=== PATIENT | male | born 1985 | race Caucasian/White ===

== ENCOUNTER 2017-10-27 17:52 | Emergency (ER) | payer MEDICAID ==
[~2017-10-27] VITALS: Ht 170.2 cm; Wt 89.5 kg
[~2017-10-27 17:52] MED LIST: PALI9TAB PO; PARO20TA6 PO
[2017-10-27] MEDS ORDERED: LORazepam 1 MG tablet PO ONE (18:50)
[2017-10-27 19:13] LABS: URINE AMPHETAMINE SCREEN POSITIVE (Neg); URINE BARBITUATE SCREEN NEGATIVE (Neg); URINE BENZODIAZEPINES SCREEN NEGATIVE (Neg); URINE CANNABINOID SCREEN POSITIVE (Neg); URINE COCAINE SCREEN NEGATIVE (Neg); URINE METHADONE SCREEN NEGATIVE (Neg); URINE OPIATE SCREEN NEGATIVE (Neg); URINE PHENCYCLIDINE SCREEN NEGATIVE (Neg)
[2017-10-27 19:17] LABS: BASOPHILS % (AUTO) 0.3 % (0-1); EOSINOPHILS # (AUTO) 0.1 X10'3 (0-0.9); EOSINOPHILS % (AUTO) 1.4 % (0-6); HEMATOCRIT 42.2 % (42.0-52.0); HEMOGLOBIN 14.9 g/dl (14.0-17.9); LYMPHOCYTES % (AUTO) 21.4 % (21-51); MEAN CORPUSCULAR HEMOGLOBIN 32.4 PG (27.0-31.0); MEAN CORPUSCULAR HGB CONC 35.2 % (33.0-36.5); MEAN CORPUSCULAR VOLUME 92.2 FL (78-98); MEAN PLATELET VOLUME 8.7 FL (7.4-10.4); MONOCYTES # (AUTO) 0.6 X10'3 (0-0.9); MONOCYTES % (AUTO) 6.8 % (2-12); NEUTROPHILS # (AUTO) 6.6 X10'3 (1.8-7.7); NEUTROPHILS % (AUTO) 70.1 % (42-75); PLATELET COUNT 216 X10'3 (140-440); RED BLOOD COUNT 4.58 X10'6 (4.70-6.10); RED CELL DISTRIBUTION WIDTH 13.3 % (11.5-14.5); WHITE BLOOD COUNT 9.5 X10'3 (4.5-11.0)
[2017-10-27 19:23] LABS: ALANINE AMINOTRANSFERASE 78 U/L (12-78); ALBUMIN 4.7 G/DL (3.4-5.0); ALBUMIN/GLOBULIN RATIO 1.5 (1.1-1.5); ALKALINE PHOSPHATASE 101 IU/L (46-116); ANION GAP 12 (8-16); ASPARTATE AMINO TRANSFERASE 16 U/L (10-37); BILIRUBIN,TOTAL 0.7 MG/DL (0.1-1.0); BLOOD UREA NITROGEN 12 MG/DL (7-18); BUN/CREATININE RATIO 10.7 (5.4-32.0); CALCIUM 9.2 MG/DL (8.5-10.1); CHLORIDE 101 MMOL/L (99-107); CREATININE 1.12 MG/DL (0.60-1.10); GLUCOSE 92 MG/DL (70-104); POTASSIUM 3.8 MMOL/L (3.5-5.1); SODIUM 138 MMOL/L (135-145); TOTAL CARBON DIOXIDE 25.1 MMOL/L (24-32); TOTAL PROTEIN 7.9 G/DL (6.4-8.2); eGFR 76 ML/MIN
[2017-10-27 19:25] LABS: ETHANOL < 0.010 GM/DL (0.0-0.010)
[2017-10-28] MEDS ORDERED: OLANZapine **IM** 10 mg inj. IM ONE ×2 (00:35→01:23)
[2017-10-28 05:52] VITALS: BP 137/99
[2017-10-28] MEDS ORDERED: olanzapine 10mg tablet PO PRN (06:50)
[2017-10-28] MEDS ORDERED: PARoxetine 20mg tablet PO SCH (08:00)
[2017-10-28] MEDS ORDERED: PALIPERIDONE 3 MG TAB.ER.24 PO SCH (08:00)
== END 2017-10-28 12:01 | disposition home or self-care (01) ==
LOC: ER 17:53
DX: F20.9 Schizophrenia, unspecified (principal); F79 Unspecified intellectual disabilities; F32.9 Major depressive disorder, single episode, unspecified; F41.9 Anxiety disorder, unspecified; J45.909 Unspecified asthma, uncomplicated; F15.10 Other stimulant abuse, uncomplicated; F12.10 Cannabis abuse, uncomplicated; Z56.0 Unemployment, unspecified; Z59.0 Homelessness; Z79.899 Other long term (current) drug therapy
CPT/HCPCS: 36415; 80053; 80305; 80320; 85025; 96372; 99284

== ENCOUNTER 2018-04-09 15:32 | Emergency (ER) | payer MEDICAID ==
[~2018-04-09] VITALS: Ht 170.2 cm; Wt 88.4 kg
[2018-04-09 15:45] VITALS: BP 152/102
[2018-04-09] MEDS ORDERED: haloperidol lactate 5mg/ml inj IM ONE (16:35)
[2018-04-09] MEDS ORDERED: LORazepam 1 MG tablet PO ONE (16:35)
[2018-04-09] MEDS ORDERED: PALI6TAB PO (16:40)
== END 2018-04-09 16:59 | disposition home or self-care (01) ==
LOC: ER 15:33
DX: F41.9 Anxiety disorder, unspecified (principal); F12.90 Cannabis use, unspecified, uncomplicated; F15.90 Other stimulant use, unspecified, uncomplicated; F32.9 Major depressive disorder, single episode, unspecified; F20.9 Schizophrenia, unspecified; J45.909 Unspecified asthma, uncomplicated; Z79.899 Other long term (current) drug therapy; Z59.0 Homelessness; Z56.0 Unemployment, unspecified
CPT/HCPCS: 96372; 99283; J1630

== ENCOUNTER 2018-07-10 23:59 | Emergency (ER) | payer MEDICAID ==
[~2018-07-10] VITALS: Ht 170.2 cm; Wt 87.2 kg
[~2018-07-10 23:59] MED LIST changes: +BENZ1TAB7 PO; +LORA1TAB PO; +METH10TA4 PO; +PALI6TAB PO; -PALI9TAB PO; -PARO20TA6 PO; +PARO40TA4 PO; +PRAZ2CAP2 PO
[2018-07-11 00:11] VITALS: BP 143/96
[2018-07-11 01:13] LABS: URINE AMPHETAMINE SCREEN NEGATIVE (Neg); URINE BARBITUATE SCREEN NEGATIVE (Neg); URINE BENZODIAZEPINES SCREEN NEGATIVE (Neg); URINE CANNABINOID SCREEN POSITIVE (Neg); URINE COCAINE SCREEN NEGATIVE (Neg); URINE METHADONE SCREEN NEGATIVE (Neg); URINE OPIATE SCREEN POSITIVE (Neg); URINE PHENCYCLIDINE SCREEN NEGATIVE (Neg)
[2018-07-11 01:16] LABS: CLARITY,URINE CLEAR (Clear); COLOR,URINE YELLOW (Yellow); GLUCOSE, URINE NEGATIVE (Neg); KETONES,URINE NEGATIVE (Neg); LEUKOCYTE ESTERASE ,URINE NEGATIVE (Neg); NITRITES, URINE NEGATIVE (Neg); OCCULT BLOOD,URINE NEGATIVE (Neg); PROTEIN,URINE NEGATIVE (Neg); UROBILINOGEN,URINE 0.2 E.U/dL (0.2-1.0)
[2018-07-11 01:19] LABS: EOSINOPHILS # (AUTO) 0.3 X10'3 (0-0.9); MEAN PLATELET VOLUME 8.9 FL (7.4-10.4)
[2018-07-11 01:20] LABS: UA COLLECTION TYPE CLN CATCH MIDSTREAM
[2018-07-11 01:20] LABS: ALANINE AMINOTRANSFERASE 35 U/L (12-78); ALBUMIN 4.4 G/DL (3.4-5.0); ALBUMIN/GLOBULIN RATIO 1.2 (1.1-1.5); ALKALINE PHOSPHATASE 92 IU/L (46-116); ANION GAP 11 (8-16); ASPARTATE AMINO TRANSFERASE 26 U/L (10-37); BILIRUBIN,TOTAL 0.5 MG/DL (0.1-1.0); BLOOD UREA NITROGEN 16 MG/DL (7-18); BUN/CREATININE RATIO 16.5 (5.4-32.0); CALCIUM 9.4 MG/DL (8.5-10.1); CHLORIDE 99 MMOL/L (99-107); CREATININE 0.97 MG/DL (0.60-1.10); GLUCOSE 85 MG/DL (70-104); SODIUM 135 MMOL/L (135-145); TOTAL CARBON DIOXIDE 24.7 MMOL/L (24-32); TOTAL PROTEIN 8.1 G/DL (6.4-8.2); eGFR 90 ML/MIN
[2018-07-11 01:22] LABS: BASOPHILS % (AUTO) 0.4 % (0-1); EOSINOPHILS % (AUTO) 2.3 % (0-6); HEMATOCRIT 45.2 % (42.0-52.0); HEMOGLOBIN 15.8 g/dl (14.0-17.9); LYMPHOCYTES # (AUTO) 2.8 X10'3 (1.1-4.8); LYMPHOCYTES % (AUTO) 23.9 % (21-51); MEAN CORPUSCULAR HGB CONC 34.9 % (33.0-36.5); MEAN CORPUSCULAR VOLUME 94.6 FL (78-98); MONOCYTES # (AUTO) 0.5 X10'3 (0-0.9); MONOCYTES % (AUTO) 4.1 % (2-12); NEUTROPHILS % (AUTO) 69.3 % (42-75); PLATELET COUNT 263 X10'3 (140-440); RED BLOOD COUNT 4.77 X10'6 (4.70-6.10); RED CELL DISTRIBUTION WIDTH 12.5 % (11.5-14.5); WHITE BLOOD COUNT 11.6 X10'3 (4.5-11.0)
[2018-07-11 01:24] LABS: POTASSIUM 4.1 MMOL/L (3.5-5.1)
[2018-07-11 01:29] LABS: ETHANOL < 0.010 GM/DL (0.0-0.010)
[2018-07-11] MEDS ORDERED: CHOL10002 PO (04:37)
[2018-07-11] MEDS ORDERED: HYDR-3686 PO (04:38)
[2018-07-11] MEDS ORDERED: PRAZ1CAP5 PO (04:39)
[2018-07-11] MEDS ORDERED: ASEN5TAB SL (04:42)
[2018-07-11] MEDS ORDERED: prazosin 1mg capsule PO PRN (05:30)
[2018-07-11] MEDS ORDERED: LORazepam 1 MG tablet PO PRN (05:50)
[2018-07-11] MEDS ORDERED: vitamin D (cholecalciferol) 1,000 unit tablet PO SCH (08:00)
[2018-07-11] MEDS ORDERED: METHYLPHENIDATE 10 MG PO SCH (08:00)
[2018-07-11] MEDS ORDERED: benztropine 1mg tablet PO SCH (08:00)
[2018-07-11] MEDS ORDERED: PALIPERIDONE 6 MG PO SCH (08:00)
[2018-07-11] MEDS ORDERED: PARoxetine 20mg tablet PO SCH (08:00)
[2018-07-11] MEDS ORDERED: ASENAPINE 5 MG SL SCH (08:00)
== END 2018-07-11 12:27 ==
LOC: ER 23:59
DX: F20.0 Paranoid schizophrenia (principal); F41.9 Anxiety disorder, unspecified; F32.9 Major depressive disorder, single episode, unspecified; F12.10 Cannabis abuse, uncomplicated; I10 Essential (primary) hypertension; J45.909 Unspecified asthma, uncomplicated; F15.10 Other stimulant abuse, uncomplicated; Z56.0 Unemployment, unspecified
CPT/HCPCS: 36415; 80053; 80305; 80320; 81003; 84443; 85025; 99285

== ENCOUNTER 2018-07-11 17:35 | Emergency (ER) | payer MEDICAID ==
[~2018-07-11] VITALS: Ht 172.7 cm; Wt 80.0 kg
[~2018-07-11 17:35] MED LIST changes: +ASEN5TAB SL; +CHOL10002 PO; +HYDR-3686 PO; +PRAZ1CAP5 PO
[2018-07-11 18:52] VITALS: BP 105/74
== END 2018-07-11 19:07 | disposition home or self-care (01) ==
LOC: ER 17:36
DX: F20.9 Schizophrenia, unspecified (principal); F41.9 Anxiety disorder, unspecified; F32.9 Major depressive disorder, single episode, unspecified; I10 Essential (primary) hypertension; J45.909 Unspecified asthma, uncomplicated; F12.10 Cannabis abuse, uncomplicated; F15.10 Other stimulant abuse, uncomplicated; Z56.0 Unemployment, unspecified
CPT/HCPCS: 99284

== ENCOUNTER 2019-03-29 16:39 | Emergency (ER) | payer MEDICAID ==
[~2019-03-29] VITALS: Ht 170.2 cm; Wt 97.4 kg
[~2019-03-29 16:39] MED LIST changes: -HYDR-3686 PO; -LORA1TAB PO; -PRAZ2CAP2 PO
[2019-03-29 16:54] VITALS: BP 130/89
[2019-03-29] MEDS ORDERED: COROTSUS OT (18:12)
[2019-03-29] MEDS ORDERED: DIPH25CA83 PO (18:16)
== END 2019-03-29 18:25 | disposition home or self-care (01) ==
LOC: ER 16:40
DX: H92.02 Otalgia, left ear (principal); I10 Essential (primary) hypertension; J45.909 Unspecified asthma, uncomplicated; F41.9 Anxiety disorder, unspecified; F32.9 Major depressive disorder, single episode, unspecified; F20.9 Schizophrenia, unspecified; F10.20 Alcohol dependence, uncomplicated; F12.90 Cannabis use, unspecified, uncomplicated; F15.90 Other stimulant use, unspecified, uncomplicated; Z56.0 Unemployment, unspecified; Z79.899 Other long term (current) drug therapy; Y90.9 Presence of alcohol in blood, level not specified
CPT/HCPCS: 99283

== ENCOUNTER 2019-06-12 12:25 | Emergency (ER) | payer MEDICAID ==
[~2019-06-12] VITALS: Ht 170.2 cm; Wt 97.7 kg
[~2019-06-12 12:25] MED LIST changes: +COROTSUS OT; +DIPH25CA83 PO
[2019-06-12] MEDS ORDERED: normal saline 1000ML IV soln IVB ONE ×2 (12:50→14:25)
--- NOTE | 2019-06-12 13:12 | NUR ---
Mother and father at bedside and report they witnessed patient did GLF and hit head on ground.
[2019-06-12 13:14] LABS: BASOPHILS % (AUTO) 0.7 % (0-1); EOSINOPHILS # (AUTO) 0.2 X10'3 (0-0.9); EOSINOPHILS % (AUTO) 3.1 % (0-6); HEMATOCRIT 39.9 % (42.0-52.0); LYMPHOCYTES # (AUTO) 2.6 X10'3 (1.1-4.8); LYMPHOCYTES % (AUTO) 37.5 % (21-51); MEAN CORPUSCULAR HEMOGLOBIN 33.1 PG (27.0-31.0); MEAN CORPUSCULAR HGB CONC 35.1 g/dL (33.0-36.5); MEAN CORPUSCULAR VOLUME 94.4 FL (78-98); MEAN PLATELET VOLUME 9.2 FL (7.4-10.4); MONOCYTES # (AUTO) 0.4 X10'3 (0-0.9); MONOCYTES % (AUTO) 5.8 % (2-12); NEUTROPHILS # (AUTO) 3.7 X10'3 (1.8-7.7); NEUTROPHILS % (AUTO) 52.9 % (42-75); PLATELET COUNT 207 X10'3 (140-440); RED BLOOD COUNT 4.23 X10'6 (4.70-6.10); RED CELL DISTRIBUTION WIDTH 13.1 % (11.5-14.5); WHITE BLOOD COUNT 7.1 X10'3 (4.5-11.0)
[2019-06-12 13:29] LABS: D-DIMER 0.43 MG/L FEU (0-0.50)
[2019-06-12 13:32] LABS: ALANINE AMINOTRANSFERASE 40 U/L (12-78); ALBUMIN 4.3 G/DL (3.4-5.0); ALBUMIN/GLOBULIN RATIO 1.2 (1.1-1.5); ALKALINE PHOSPHATASE 84 IU/L (46-116); ANION GAP 10 (8-16); ASPARTATE AMINO TRANSFERASE 19 U/L (10-37); BILIRUBIN,TOTAL 0.3 MG/DL (0.1-1.0); BLOOD UREA NITROGEN 10 MG/DL (7-18); BUN/CREATININE RATIO 11.5 (5.4-32.0); CALCIUM 9.1 MG/DL (8.5-10.1); CHLORIDE 105 MMOL/L (99-107); CREATININE 0.87 MG/DL (0.60-1.10); GLUCOSE 78 MG/DL (70-104); POTASSIUM 3.7 MMOL/L (3.5-5.1); SODIUM 139 MMOL/L (135-145); TOTAL CARBON DIOXIDE 24.1 MMOL/L (24-32); TOTAL PROTEIN 7.8 G/DL (6.4-8.2); eGFR > 90 ML/MIN
[2019-06-12] MEDS ORDERED: LIDOcaine 1% W/epiNEPHrine 1:200,000 10ml vial IJ ONE (14:25)
[2019-06-12] MEDS ORDERED: LIDOcaine 1% w/EPI 1:200,000 injection 10mL vial IM ONE (14:25)
[2019-06-12 14:43] LABS: MAGNESIUM 1.7 MG/DL (1.5-2.4); PHOSPHORUS 2.8 MG/DL (2.3-4.5)
[2019-06-12 15:48] VITALS: BP 122/67
== END 2019-06-12 15:49 | disposition home or self-care (01) ==
LOC: ER 12:26
DX: R56.9 Unspecified convulsions (principal); S01.81XA Laceration without foreign body of other part of head, initial encounter; R42 Dizziness and giddiness; I10 Essential (primary) hypertension; J45.909 Unspecified asthma, uncomplicated; F12.90 Cannabis use, unspecified, uncomplicated; F15.90 Other stimulant use, unspecified, uncomplicated; F17.210 Nicotine dependence, cigarettes, uncomplicated; Z56.0 Unemployment, unspecified; Z79.899 Other long term (current) drug therapy; W22.8XXA Striking against or struck by other objects, initial encounter; Y93.89 Activity, other specified; Y92.89 Other specified places as the place of occurrence of the external cause; Y99.9 Unspecified external cause status
CPT/HCPCS: 12013; 36415; 70450; 80053; 83735; 84100; 84146; 85025; 85379; 85610; 96360; 96361; 99284; J7030

== ENCOUNTER 2019-11-15 12:27 | Emergency (ER) | payer MEDICAID ==
[~2019-11-15] VITALS: Ht 170.2 cm; Wt 96.0 kg
[2019-11-15 12:32] VITALS: BP 148/107
== END 2019-11-15 13:39 | disposition home or self-care (01) ==
LOC: ER 12:27
DX: R61 Generalized hyperhidrosis (principal); R11.0 Nausea; I10 Essential (primary) hypertension; J45.909 Unspecified asthma, uncomplicated; F32.9 Major depressive disorder, single episode, unspecified; F41.9 Anxiety disorder, unspecified; F20.9 Schizophrenia, unspecified; F12.90 Cannabis use, unspecified, uncomplicated; F15.90 Other stimulant use, unspecified, uncomplicated; Z72.89 Other problems related to lifestyle; Z56.0 Unemployment, unspecified; Z79.899 Other long term (current) drug therapy
CPT/HCPCS: 99281

== ENCOUNTER 2020-11-14 14:57 | Emergency (ER) | payer MEDICAID ==
[~2020-11-14] VITALS: Ht 171.4 cm; Wt 207.0 kg
[~2020-11-14 14:57] MED LIST changes: -ASEN5TAB SL; -CHOL10002 PO; +CHOL100046 PO; -COROTSUS OT; -DIPH25CA83 PO; +LORA2TAB96 PO; -METH10TA4 PO; -PRAZ1CAP5 PO; +albuterol INH
[2020-11-14 15:26] VITALS: BP 142/95
[2020-11-14 16:52] LABS: BASOPHILS % (AUTO) 0.3 % (0-1); EOSINOPHILS # (AUTO) 0.1 X10'3 (0-0.9); EOSINOPHILS % (AUTO) 0.7 % (0-6); HEMATOCRIT 43.5 % (42.0-52.0); HEMOGLOBIN 14.9 g/dl (14.0-17.9); LYMPHOCYTES % (AUTO) 35.9 % (21-51); MEAN CORPUSCULAR HEMOGLOBIN 33.3 PG (27.0-31.0); MEAN CORPUSCULAR HGB CONC 34.2 g/dL (33.0-36.5); MEAN CORPUSCULAR VOLUME 97.3 FL (78-98); MEAN PLATELET VOLUME 8.1 FL (7.4-10.4); MONOCYTES # (AUTO) 0.7 X10'3 (0-0.9); MONOCYTES % (AUTO) 6.5 % (2-12); NEUTROPHILS # (AUTO) 6.4 X10'3 (1.8-7.7); NEUTROPHILS % (AUTO) 56.6 % (42-75); PLATELET COUNT 271 X10'3 (140-440); RED BLOOD COUNT 4.47 X10'6 (4.70-6.10); RED CELL DISTRIBUTION WIDTH 12.9 % (11.5-14.5); WHITE BLOOD COUNT 11.3 X10'3 (4.5-11.0)
[2020-11-14 17:07] LABS: ALANINE AMINOTRANSFERASE 56 U/L (12-78); ALBUMIN 4.1 G/DL (3.4-5.0); ALBUMIN/GLOBULIN RATIO 1.2 (1.1-1.5); ALKALINE PHOSPHATASE 93 IU/L (46-116); ANION GAP 12 (8-16); ASPARTATE AMINO TRANSFERASE 48 U/L (10-37); BILIRUBIN,TOTAL 0.4 MG/DL (0.1-1.0); BLOOD UREA NITROGEN 11 MG/DL (7-18); CALCIUM 9.1 MG/DL (8.5-10.1); CHLORIDE 101 MMOL/L (99-107); CREATININE 0.92 MG/DL (0.60-1.10); GLUCOSE 112 MG/DL (70-104); POTASSIUM 3.6 MMOL/L (3.5-5.1); SODIUM 139 MMOL/L (135-145); TOTAL CARBON DIOXIDE 26.1 MMOL/L (24-32); TOTAL PROTEIN 7.5 G/DL (6.4-8.2); eGFR > 90 ML/MIN
[2020-11-14] MEDS ORDERED: ALBU8HFA PO (17:17)
[2020-11-14] MEDS ORDERED: BENZ-16 PO (17:17)
== END 2020-11-14 17:33 | disposition home or self-care (01) ==
LOC: ER 14:58
DX: J06.9 Acute upper respiratory infection, unspecified (principal); Z20.822 Contact with and (suspected) exposure to COVID-19; R06.02 Shortness of breath; R05 Cough; R43.8 Other disturbances of smell and taste; I10 Essential (primary) hypertension; F41.9 Anxiety disorder, unspecified; J45.909 Unspecified asthma, uncomplicated; F32.9 Major depressive disorder, single episode, unspecified; F20.9 Schizophrenia, unspecified; F12.90 Cannabis use, unspecified, uncomplicated; F15.90 Other stimulant use, unspecified, uncomplicated; F14.90 Cocaine use, unspecified, uncomplicated; Z72.89 Other problems related to lifestyle; Z56.0 Unemployment, unspecified; Z88.8 Allergy status to other drugs, medicaments and biological substances; Z79.899 Other long term (current) drug therapy
CPT/HCPCS: 36415; 71045; 80053; 85025; 87635; 99284

== ENCOUNTER 2021-08-04 14:14 | Emergency (ER) | payer MEDICAID ==
[~2021-08-04] VITALS: Ht 170.2 cm; Wt 80.9 kg
[2021-08-04] MEDS ORDERED: ASEN5TAB SL (14:29)
--- NOTE | 2021-08-04 14:46 | NUR ---
Pt ambulated from Main ER to bed #24. Pt calm/cooperative. 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
[2021-08-04 15:07] LABS: BASOPHILS % (AUTO) 0.2 % (0-1); EOSINOPHILS # (AUTO) 0.1 X10'3 (0-0.9); EOSINOPHILS % (AUTO) 1.6 % (0-6); HEMATOCRIT 40.7 % (42.0-52.0); HEMOGLOBIN 14.2 g/dl (14.0-17.9); LYMPHOCYTES # (AUTO) 2.3 X10'3 (1.1-4.8); LYMPHOCYTES % (AUTO) 33.6 % (21-51); MEAN CORPUSCULAR HGB CONC 34.8 g/dL (33.0-36.5); MEAN CORPUSCULAR VOLUME 94.8 FL (78-98); MEAN PLATELET VOLUME 8.1 FL (7.4-10.4); MONOCYTES # (AUTO) 0.5 X10'3 (0-0.9); MONOCYTES % (AUTO) 7.9 % (2-12); NEUTROPHILS # (AUTO) 3.8 X10'3 (1.8-7.7); NEUTROPHILS % (AUTO) 56.7 % (42-75); PLATELET COUNT 207 X10'3 (140-440); RED BLOOD COUNT 4.29 X10'6 (4.70-6.10); RED CELL DISTRIBUTION WIDTH 13.2 % (11.5-14.5); WHITE BLOOD COUNT 6.8 X10'3 (4.5-11.0)
[2021-08-04 15:22] LABS: ALANINE AMINOTRANSFERASE 57 U/L (12-78); ALBUMIN 4.2 G/DL (3.4-5.0); ALBUMIN/GLOBULIN RATIO 1.2 (1.1-1.5); ALKALINE PHOSPHATASE 82 IU/L (46-116); ANION GAP 13 (8-16); ASPARTATE AMINO TRANSFERASE 36 U/L (10-37); BILIRUBIN,TOTAL 0.5 MG/DL (0.1-1.0); BLOOD UREA NITROGEN 10 MG/DL (7-18); BUN/CREATININE RATIO 11.8 (5.4-32.0); CHLORIDE 103 MMOL/L (99-107); CREATININE 0.85 MG/DL (0.60-1.10); GLUCOSE 76 MG/DL (70-104); POTASSIUM 3.3 MMOL/L (3.5-5.1); SODIUM 140 MMOL/L (135-145); TOTAL CARBON DIOXIDE 24.2 MMOL/L (24-32); TOTAL PROTEIN 7.8 G/DL (6.4-8.2); eGFR > 90 ML/MIN
[2021-08-04 15:30] LABS: ETHANOL < 0.010 GM/DL (0.0-0.010)
[2021-08-04 15:35] LABS: CLARITY,URINE CLEAR (Clear); COLOR,URINE YELLOW (Yellow); UA COLLECTION TYPE CLN CATCH MIDSTREAM
[2021-08-04 15:36] LABS: GLUCOSE, URINE NEGATIVE (Neg); KETONES,URINE NEGATIVE (Neg); LEUKOCYTE ESTERASE ,URINE NEGATIVE (Neg); NITRITES, URINE NEGATIVE (Neg); OCCULT BLOOD,URINE NEGATIVE (Neg); PROTEIN,URINE NEGATIVE (Neg); UROBILINOGEN,URINE 0.2 E.U/dL (0.2-1.0)
[2021-08-04 15:41] LABS: URINE AMPHETAMINE SCREEN POSITIVE (Neg); URINE BARBITUATE SCREEN NEGATIVE (Neg); URINE BENZODIAZEPINES SCREEN NEGATIVE (Neg); URINE CANNABINOID SCREEN NEGATIVE (Neg); URINE COCAINE SCREEN NEGATIVE (Neg); URINE METHADONE SCREEN NEGATIVE (Neg); URINE OPIATE SCREEN NEGATIVE (Neg); URINE PHENCYCLIDINE SCREEN NEGATIVE (Neg)
--- NOTE | 2021-08-04 16:00 | NUR ---
Pt prefers to be called "KEREN" - this is his middle name.
--- NOTE | 2021-08-04 16:15 | NUR ---
Pt sitting up in bed, requested "something to eat." Pt was given cracker and cheese. Pt was calm and cooperative during admit process. Pt self admitted to ED "feeling anxious and little homicidal.When asked homicidal to who pt stated "towards a handful of people." Pt reports he quit taking his medication three days ago "I wanted to feel like...regular." Pt states "i feel roberth when I'm on them." "I feel worse when I am not." Pt began falling asleep during assessment stated "I have been trying to stay alert and awake and it's exhausting." Pt also said "I took an Ativan before I came to hospital. Pt has Ativan as a home medication. Pt at times is a little disorganized stating "I was dealing with "sketchy" people, he then would fall a sleep. Pt reports suicide attempt "but that was a long time ago." Unable to describe what method. Pt reports A/VH, but wasn't able to currently describe them.
[2021-08-04] MEDS ORDERED: LORazepam 1 MG tablet PO PRN (16:30)
[2021-08-04] MEDS ORDERED: albuterol 2.5 MG/3 ML nebule NEB PRN (16:30)
[2021-08-04] MEDS ORDERED: ALBU8HFA PO (16:31)
[2021-08-04] MEDS ORDERED: potassium Cl 20 mEq SR tablet PO ONE (16:35)
[2021-08-04] MEDS ORDERED: PARoxetine 20mg tablet PO ONE (16:50)
[2021-08-04] MEDS ORDERED: PALIPERIDONE 3 MG TAB.ER.24 PO ONE (16:50)
--- NOTE | 2021-08-04 16:58 | NUR ---
Pt stated he had no substance abuse history, however tox screen was + for methamphetamine. Pt is sleeping comfortably, snoring. Unable to assess further.
--- NOTE | 2021-08-04 17:13 | NUR ---
Administered one time dose of K-dur 40 meq. Pt's K+ level was 3.3
--- NOTE | 2021-08-04 17:40 | NUR ---
PACKET FAXED TO [facility]
--- NOTE | 2021-08-04 21:13 | NUR ---
Pt ambulated independantly x1 to BR. Sleeping at this time.
--- NOTE | 2021-08-05 02:55 | NUR ---
Pt up x1 independently to BR sleeping at this time.
--- NOTE | 2021-08-05 07:25 | NUR ---
Pt sleeping comfortably, no distress noted. Respirations even and unlabored.
[2021-08-05] MEDS ORDERED: PARoxetine 20mg tablet PO SCH (08:00)
[2021-08-05] MEDS ORDERED: benztropine 1mg tablet PO SCH (08:00)
[2021-08-05] MEDS ORDERED: cholecalciferol (vitamin D3) 1,000 unit (25mcg) tablet PO SCH (08:00)
[2021-08-05] MEDS ORDERED: asenapine 5mg TAB.SUBL SL SCH (08:00)
[2021-08-05] MEDS ORDERED: PALIPERIDONE 3 MG TAB.ER.24 PO SCH (08:00)
--- NOTE | 2021-08-05 08:05 | NUR ---
Pt awake requesting to use phone. Pt called and spoke with his father, left message for his mother.
--- NOTE | 2021-08-05 09:25 | NUR ---
[facility] at bedside. Pt is calm and cooperative with assessment.
[2021-08-05 10:50] VITALS: BP 146/88
--- NOTE | 2021-08-05 10:56 | NUR ---
DISCHARGE NOTE: Pt was discharged from unit at 1050. Pt was escorted to lobby by staff. Pt left with [facility], substance abuse resource. Discharge instructions were reviewed with pt and he verbalized understanding. Pt was A&Ox4. Pt left with all personal belongings, including his pocket knife. Pt was met by security outside and knife was relinquished.
== END 2021-08-05 11:08 ==
LOC: ER 14:15
DX: F23 Brief psychotic disorder (principal); Z20.822 Contact with and (suspected) exposure to COVID-19; I10 Essential (primary) hypertension; J45.909 Unspecified asthma, uncomplicated; F41.9 Anxiety disorder, unspecified; F32.9 Major depressive disorder, single episode, unspecified; F12.90 Cannabis use, unspecified, uncomplicated; F15.90 Other stimulant use, unspecified, uncomplicated; F14.90 Cocaine use, unspecified, uncomplicated; Z72.89 Other problems related to lifestyle; Z56.0 Unemployment, unspecified; Z88.8 Allergy status to other drugs, medicaments and biological substances; Z79.899 Other long term (current) drug therapy
CPT/HCPCS: 36415; 80053; 80305; 80320; 81003; 84443; 85025; 87635; 99285; C9803

== ENCOUNTER 2021-08-16 15:51 | Emergency (ER) | payer MEDICAID ==
[~2021-08-16] VITALS: Ht 172.7 cm; Wt 86.0 kg
[~2021-08-16 15:51] MED LIST changes: +ALBU8HFA PO; +LIDOcaine 1% w/epiNEPHrine 1:200,000 30ml vial ONE; -albuterol INH
[2021-08-16 17:01] VITALS: BP 139/95
== END 2021-08-16 18:18 | disposition home or self-care (01) ==
LOC: ER 15:51
DX: S01.111A Laceration without foreign body of right eyelid and periocular area, initial encounter (principal); I10 Essential (primary) hypertension; F31.9 Bipolar disorder, unspecified; F20.9 Schizophrenia, unspecified; F12.10 Cannabis abuse, uncomplicated; F15.10 Other stimulant abuse, uncomplicated; Z56.0 Unemployment, unspecified; Y04.0XXA Assault by unarmed brawl or fight, initial encounter; Y93.89 Activity, other specified; Y92.89 Other specified places as the place of occurrence of the external cause; Y99.8 Other external cause status; Z88.5 Allergy status to narcotic agent; Z88.8 Allergy status to other drugs, medicaments and biological substances
CPT/HCPCS: 12013; 70450; 72125; 99285; J3490; 12002

== ENCOUNTER 2021-08-18 14:07 | Emergency (ER) | payer MEDICAID ==
[~2021-08-18] VITALS: Ht 170.2 cm; Wt 91.8 kg
[~2021-08-18 14:07] MED LIST changes: -LIDOcaine 1% w/epiNEPHrine 1:200,000 30ml vial ONE
[2021-08-18 14:33] VITALS: BP 168/103
[2021-08-18] MEDS ORDERED: LORazepam 1 MG tablet PO ONE (17:20)
[2021-08-18] MEDS ORDERED: bacitracin 15gm ointment TP ONE (17:20)
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
== END 2021-08-18 17:59 | disposition home or self-care (01) ==
LOC: ER 14:08
DX: S01.111D Laceration without foreign body of right eyelid and periocular area, subsequent encounter (principal); F41.9 Anxiety disorder, unspecified; Z48.00 Encounter for change or removal of nonsurgical wound dressing; J45.909 Unspecified asthma, uncomplicated; F32.9 Major depressive disorder, single episode, unspecified; F20.9 Schizophrenia, unspecified; F15.10 Other stimulant abuse, uncomplicated; F12.10 Cannabis abuse, uncomplicated; Z56.0 Unemployment, unspecified; Z91.018 Allergy to other foods; X58.XXXD Exposure to other specified factors, subsequent encounter
CPT/HCPCS: 99283

== ENCOUNTER 2021-08-21 09:54 | Emergency (ER) | payer MEDICAID ==
[~2021-08-21] VITALS: Ht 170.2 cm; Wt 91.8 kg
[2021-08-21 10:21] VITALS: BP 148/103
[2021-08-21] MEDS ORDERED: acetaminophen 325mg tablet PO ONE (11:00)
[2021-08-21] MEDS ORDERED: LORazepam 1 MG tablet PO ONE (11:00)
[2021-08-21] MEDS ORDERED: CLIN150C2 PO (11:07)
== END 2021-08-21 11:54 | disposition home or self-care (01) ==
LOC: ER 09:55
DX: T23.001A Burn of unspecified degree of right hand, unspecified site, initial encounter (principal); F41.9 Anxiety disorder, unspecified; R05.9 Cough, unspecified; K08.89 Other specified disorders of teeth and supporting structures; R11.0 Nausea; I10 Essential (primary) hypertension; J45.909 Unspecified asthma, uncomplicated; F32.9 Major depressive disorder, single episode, unspecified; F20.9 Schizophrenia, unspecified; F12.90 Cannabis use, unspecified, uncomplicated; F15.90 Other stimulant use, unspecified, uncomplicated; F14.90 Cocaine use, unspecified, uncomplicated; Z72.89 Other problems related to lifestyle; Z56.0 Unemployment, unspecified; Z88.8 Allergy status to other drugs, medicaments and biological substances; Z79.899 Other long term (current) drug therapy; Z79.2 Long term (current) use of antibiotics; Y92.89 Other specified places as the place of occurrence of the external cause
CPT/HCPCS: 99283

== ENCOUNTER 2021-08-25 08:41 | Emergency (ER) | payer MEDICAID ==
[~2021-08-25] VITALS: Ht 170.2 cm; Wt 91.8 kg
[~2021-08-25 08:41] MED LIST changes: +CLIN150C2 PO
[2021-08-25 08:51] VITALS: BP 143/106
[2021-08-25] MEDS ORDERED: LORazepam 1 MG tablet PO ONE (09:35)
== END 2021-08-25 09:35 | disposition home or self-care (01) ==
LOC: ER 08:41
DX: S01.111D Laceration without foreign body of right eyelid and periocular area, subsequent encounter (principal); I10 Essential (primary) hypertension; J45.909 Unspecified asthma, uncomplicated; F41.9 Anxiety disorder, unspecified; F32.9 Major depressive disorder, single episode, unspecified; F20.9 Schizophrenia, unspecified; F12.10 Cannabis abuse, uncomplicated; F15.10 Other stimulant abuse, uncomplicated; Z56.0 Unemployment, unspecified; Z91.018 Allergy to other foods; Z48.00 Encounter for change or removal of nonsurgical wound dressing; X58.XXXD Exposure to other specified factors, subsequent encounter
CPT/HCPCS: 99283

== ENCOUNTER 2021-11-03 08:53 | Emergency (ER) | payer MEDICAID ==
[~2021-11-03] VITALS: Ht 170.2 cm; Wt 81.8 kg
[~2021-11-03 08:53] MED LIST changes: -CLIN150C2 PO
[2021-11-03 09:56] LABS: BASOPHILS % (AUTO) 0.5 % (0-1); EOSINOPHILS # (AUTO) 0.1 X10'3 (0-0.9); EOSINOPHILS % (AUTO) 1.5 % (0-6); HEMATOCRIT 37.7 % (42.0-52.0); HEMOGLOBIN 13.1 g/dl (14.0-17.9); LYMPHOCYTES # (AUTO) 2.4 X10'3 (1.1-4.8); LYMPHOCYTES % (AUTO) 33.7 % (21-51); MEAN CORPUSCULAR HEMOGLOBIN 33.4 PG (27.0-31.0); MEAN CORPUSCULAR HGB CONC 34.9 g/dL (33.0-36.5); MEAN CORPUSCULAR VOLUME 95.7 FL (78-98); MEAN PLATELET VOLUME 8.5 FL (7.4-10.4); MONOCYTES # (AUTO) 0.6 X10'3 (0-0.9); MONOCYTES % (AUTO) 8.1 % (2-12); NEUTROPHILS % (AUTO) 56.2 % (42-75); PLATELET COUNT 233 X10'3 (140-440); RED BLOOD COUNT 3.93 X10'6 (4.70-6.10); RED CELL DISTRIBUTION WIDTH 13.1 % (11.5-14.5); WHITE BLOOD COUNT 7.1 X10'3 (4.5-11.0)
[2021-11-03 10:33] LABS: ALANINE AMINOTRANSFERASE 40 U/L (12-78); ALBUMIN 4.2 G/DL (3.4-5.0); ALBUMIN/GLOBULIN RATIO 1.5 (1.1-1.5); ALKALINE PHOSPHATASE 84 IU/L (46-116); ANION GAP 15 (8-16); ASPARTATE AMINO TRANSFERASE 30 U/L (10-37); BILIRUBIN,TOTAL 0.7 MG/DL (0.1-1.0); BLOOD UREA NITROGEN 10 MG/DL (7-18); BUN/CREATININE RATIO 11.9 (5.4-32.0); CHLORIDE 103 MMOL/L (99-107); CREATININE 0.84 MG/DL (0.60-1.10); GLUCOSE 73 MG/DL (70-104); POTASSIUM 3.6 MMOL/L (3.5-5.1); SODIUM 140 MMOL/L (135-145); TOTAL CARBON DIOXIDE 22.4 MMOL/L (24-32); eGFR > 90 ML/MIN
[2021-11-03 10:40] LABS: ETHANOL < 0.010 GM/DL (0.0-0.010)
--- NOTE | 2021-11-03 10:49 | NUR ---
relieving RN for break, pt amb with steady to restroom, unable to give urine sample, gave pt pitcher of water to drink, pt is calm and cooperative, asking for ativan
--- NOTE | 2021-11-03 10:50 | NUR ---
covid sample sent to lab
[2021-11-03] MEDS ORDERED: BECL7.3A INH ×2 (11:06→12:05)
[2021-11-03] MEDS ORDERED: LORA-269 PO (11:06)
--- NOTE | 2021-11-03 11:32 | NUR ---
Pt. ambulated over from the Main ER, accompanied by tech. Pt. is sitting on bedside eating a snack at this time.
[2021-11-03] MEDS ORDERED: QUET25TA36 PO (11:52)
--- NOTE | 2021-11-03 11:58 | NUR ---
Pt. up to use the BR, however continues to be unable to urinate at this time. Fluids provided. V/S re-assessed, pulse and BP continue to be slightly elevated, however pt. reports anxiety and appears somewhat restless. Med Recc completed, pt. does have an order for PRN Ativan. Will continue to monitor.
--- NOTE | 2021-11-03 12:43 | NUR ---
Pt. sitting up eating lunch, he approaches the nurses's station endorsing A/SMITH, stating, "I hear code blue, coming from that back room! Can you go check?" Pt. walks to back room to listen more closely and requires redirction from staff to return back to his room. Pt. continues to persent as restless, reporting he hears "People pounding on the door back there," requiring further redirection. Will administer PRN Ativan, and notify MD for possible order for medication to help A/SMITH.
[2021-11-03] MEDS ORDERED: LORazepam 1 MG tablet PO PRN (12:50)
[2021-11-03] MEDS ORDERED: non-formulary drug (Beclomethasone Dipropionate (Qvar 40 MCG INHALER) 2 PUFFS) INH PRN (12:50)
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
--- NOTE | 2021-11-03 13:15 | NUR ---
PATIENT NOTED RESPONDING TO AUDITORY HALLUCINATIONS OF "VOICES YELLING FOR HELP BEHING THE DOOR". PATIENT PRESENTS PARANOID WITH A DISORGANIZED THOUGHT PROCESS. HE RETREATED BACK TO HIS ROOM WITH REDIRECTION.
--- NOTE | 2021-11-03 13:20 | NUR ---
Urine sample collected and sent to lab, results pending.
[2021-11-03 13:47] LABS: URINE AMPHETAMINE SCREEN POSITIVE (Neg); URINE BARBITUATE SCREEN NEGATIVE (Neg); URINE BENZODIAZEPINES SCREEN NEGATIVE (Neg); URINE CANNABINOID SCREEN POSITIVE (Neg); URINE COCAINE SCREEN NEGATIVE (Neg); URINE METHADONE SCREEN NEGATIVE (Neg); URINE OPIATE SCREEN NEGATIVE (Neg); URINE PHENCYCLIDINE SCREEN NEGATIVE (Neg)
--- NOTE | 2021-11-03 14:07 | NUR ---
PATIENT NOTED SLEEPING IN BED AT THIS TIME LYING SUPINE. RESPIRATIONS EVEN, UNLABORED. NO S/S OF DISTRESS.
--- NOTE | 2021-11-03 14:40 | NUR ---
NATY FROM [facility] AT PATIENTS BEDSIDE FOR EVALUATION. PATIENT AWOKE FOR 30 SECONDS BEFORE CLOSING HIS EYES AND GOING BACK TO SLEEP. HE WAS UNWILLING TO ANSWER ANY QUESTIONS. NATY TO COMPLETE HIS EVALUATION AT A LATER TIME.
--- NOTE | 2021-11-03 15:14 | NUR ---
NATY FROM [facility] ATTEMPTED TO EVALUATE PATIENT AT BEDSIDE. UNABLE TO BE AROUSED D/T LACK OF SLEEP FROM RECENT METH USE. PATIENT UNABLE TO BE EVALUATED AT THIS TIME. HE REMAINS SLEEPING IN BED WITH NO S/S OF DISTRESS. WILL CONTINUE TO MONITOR.
--- NOTE | 2021-11-03 17:00 | NUR ---
PATIENT CONTINUES SLEEPING IN HIS ROOM AT THIS TIME. NO COMPLAINTS OR CHANGES NOTED. RESPIRATIONS EVEN, UNLABORED. WILL CONTINUE TO MONITOR.
--- NOTE | 2021-11-03 18:30 | NUR ---
Assumed care of patient finishing dinner. He denies needs at this time.
[2021-11-03] MEDS: budesonide 0.5mg/2ml UD nebule IH SCH (20:16)
[2021-11-03] MEDS: albuterol 2.5 MG/3 ML nebule NEB PRN (20:16)
--- NOTE | 2021-11-03 20:33 | NUR ---
Patient accepted his medication, and has now laid down to sleep.
[2021-11-03] MEDS ORDERED: QUEtiapine 25mg tablet PO SCH (21:00)
--- NOTE | 2021-11-03 22:32 | NUR ---
Patient is asleep on his back, softly snoring. RR equal and unlabored. No s/s of distress.
--- NOTE | 2021-11-03 23:00 | NUR ---
Patient sleeping on his left side. No distress noted.
--- NOTE | 2021-11-04 00:16 | NUR ---
Patient sleeping on his left side. No distress noted.
--- NOTE | 2021-11-04 02:31 | NUR ---
Patient appears to be sleeping. No distress noted.
--- NOTE | 2021-11-04 04:18 | NUR ---
Patient observed sleeping. No distress noted.
--- NOTE | 2021-11-04 06:29 | NUR ---
Patient sleeping on left side. No disstress observed. Continue to monitor.
[2021-11-04 06:42] VITALS: BP 133/89
[2021-11-04] MEDS ORDERED: cholecalciferol (vitamin D3) 1,000 unit (25mcg) tablet PO SCH (08:00)
[2021-11-04] MEDS ORDERED: benztropine 1mg tablet PO SCH (08:00)
[2021-11-04] MEDS ORDERED: PALIPERIDONE 3 MG TAB.ER.24 PO SCH (08:00)
[2021-11-04] MEDS ORDERED: PARoxetine 20mg tablet PO SCH (08:00)
--- NOTE | 2021-11-04 08:05 | NUR ---
Patient eating breakfast. No distress observed. Continue to monitor.
[2021-11-04 08:32] LABS: CLARITY,URINE CLEAR (Clear); COLOR,URINE YELLOW (Yellow); GLUCOSE, URINE NEGATIVE (Neg); KETONES,URINE NEGATIVE (Neg); LEUKOCYTE ESTERASE ,URINE TRACE (Neg); NITRITES, URINE NEGATIVE (Neg); OCCULT BLOOD,URINE NEGATIVE (Neg); PH,URINE 5.5 (4.8-8.0); PROTEIN,URINE NEGATIVE (Neg); UROBILINOGEN,URINE 0.2 E.U/dL (0.2-1.0)
[2021-11-04 08:48] LABS: UA COLLECTION TYPE CLN CATCH MIDSTREAM
--- NOTE | 2021-11-04 08:55 | NUR ---
Met with patient in regards to substance use and to see if patient was interested in treatment options. Patient is interested in treatment options. I gave patient [facility] number to call to start the process. I gave patient my card also to call me with any questions.
[2021-11-04] MEDS: budesonide 0.5mg/2ml UD nebule IH SCH (09:00)
[2021-11-04] MEDS: albuterol 2.5 MG/3 ML nebule NEB PRN (09:00)
[2021-11-04 09:31] LABS: BACTERIA,URINE NONE SEEN /HPF (Neg); RBC,URINE NONE SEEN /HPF (0-2); SQUAMOUS EPITHELIAL CELL,UR FEW /LPF (FEW); WBC,URINE 0-4 /HPF (0-4)
--- NOTE | 2021-11-04 10:02 | NUR ---
Patient sleeping. No distress observed. Continue to monitor.
== END 2021-11-04 11:03 | disposition home or self-care (01) ==
LOC: ER 08:54
DX: F20.9 Schizophrenia, unspecified (principal); R45.851 Suicidal ideations; F29 Unspecified psychosis not due to a substance or known physiological condition; F41.9 Anxiety disorder, unspecified; F32.9 Major depressive disorder, single episode, unspecified; J45.909 Unspecified asthma, uncomplicated; I10 Essential (primary) hypertension; F12.10 Cannabis abuse, uncomplicated; F15.10 Other stimulant abuse, uncomplicated; F11.10 Opioid abuse, uncomplicated; Z91.018 Allergy to other foods; Z88.8 Allergy status to other drugs, medicaments and biological substances; Z20.822 Contact with and (suspected) exposure to COVID-19
CPT/HCPCS: 36415; 80053; 80305; 80320; 81001; 85025; 87088; 87635; 94640; 99285; C9803; 94760

== ENCOUNTER 2021-12-27 17:50 | Emergency (ER) | payer MEDICAID ==
[~2021-12-27] VITALS: Ht 170.2 cm; Wt 81.0 kg
[~2021-12-27 17:50] MED LIST changes: +BECL7.3A INH; +LORA-269 PO; -LORA2TAB96 PO; +QUET25TA36 PO
[2021-12-27] MEDS ORDERED: normal saline 1000ml 1,000 ML IV ONE ×2 (19:15→21:10)
[2021-12-27] MEDS ORDERED: LORazepam 2 mg/ml vial IV ONE ×2 (19:15→22:15)
[2021-12-27 19:38] LABS: BASOPHILS % (AUTO) 0.3 % (0-1); EOSINOPHILS # (AUTO) 0.1 X10'3 (0-0.9); EOSINOPHILS % (AUTO) 1.2 % (0-6); HEMATOCRIT 41.3 % (42.0-52.0); HEMOGLOBIN 14.2 g/dl (14.0-17.9); LYMPHOCYTES # (AUTO) 3.9 X10'3 (1.1-4.8); LYMPHOCYTES % (AUTO) 32.5 % (21-51); MEAN CORPUSCULAR HEMOGLOBIN 32.6 PG (27.0-31.0); MEAN CORPUSCULAR HGB CONC 34.3 g/dL (33.0-36.5); MEAN PLATELET VOLUME 8.9 FL (7.4-10.4); MONOCYTES # (AUTO) 1.1 X10'3 (0-0.9); MONOCYTES % (AUTO) 9.4 % (2-12); NEUTROPHILS # (AUTO) 6.8 X10'3 (1.8-7.7); NEUTROPHILS % (AUTO) 56.6 % (42-75); PLATELET COUNT 243 X10'3 (140-440); RED BLOOD COUNT 4.34 X10'6 (4.70-6.10); RED CELL DISTRIBUTION WIDTH 13.1 % (11.5-14.5)
[2021-12-27 19:56] LABS: ALANINE AMINOTRANSFERASE 38 U/L (12-78); ALBUMIN 4.8 G/DL (3.4-5.0); ALBUMIN/GLOBULIN RATIO 1.5 (1.1-1.5); ALKALINE PHOSPHATASE 80 IU/L (46-116); ANION GAP 14 (8-16); ASPARTATE AMINO TRANSFERASE 28 U/L (10-37); BLOOD UREA NITROGEN 20 MG/DL (7-18); BUN/CREATININE RATIO 17.2 (5.4-32.0); CALCIUM 9.3 MG/DL (8.5-10.1); CHLORIDE 105 MMOL/L (99-107); CREATININE 1.16 MG/DL (0.60-1.10); ETHANOL < 0.010 GM/DL (0.0-0.010); GLUCOSE 87 MG/DL (70-104); POTASSIUM 3.6 MMOL/L (3.5-5.1); SODIUM 137 MMOL/L (135-145); TOTAL CARBON DIOXIDE 18.4 MMOL/L (24-32); TOTAL PROTEIN 7.9 G/DL (6.4-8.2); eGFR 72 ML/MIN
[2021-12-27] MEDS ORDERED: nicotine 21mg patch - 24 hr TD ONE (23:00)
[2021-12-27] MEDS ORDERED: haloperidol lactate 5mg/ml inj IM ONE (23:00)
[2021-12-27] MEDS ORDERED: diphenhydrAMINE 50 mg/ml inj IM ONE ×2 (23:00→23:25)
[2021-12-27 23:02] LABS: CLARITY,URINE CLEAR (Clear); GLUCOSE, URINE NEGATIVE (Neg); KETONES,URINE 40 mg/dl (Neg); LEUKOCYTE ESTERASE ,URINE NEGATIVE (Neg); NITRITES, URINE NEGATIVE (Neg); OCCULT BLOOD,URINE TRACE-INTACT (Neg); PROTEIN,URINE NEGATIVE (Neg); UROBILINOGEN,URINE 0.2 E.U/dL (0.2-1.0)
[2021-12-27 23:03] LABS: COLOR,URINE AMBER (Yellow); UA COLLECTION TYPE STRAIGHT CATH; URINE AMPHETAMINE SCREEN POSITIVE (Neg); URINE BARBITUATE SCREEN NEGATIVE (Neg); URINE BENZODIAZEPINES SCREEN POSITIVE (Neg); URINE CANNABINOID SCREEN POSITIVE (Neg); URINE COCAINE SCREEN NEGATIVE (Neg); URINE METHADONE SCREEN NEGATIVE (Neg); URINE OPIATE SCREEN NEGATIVE (Neg); URINE PHENCYCLIDINE SCREEN NEGATIVE (Neg)
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
[2021-12-27 23:09] LABS: AMORPHOUS URATES 1+; MUCUS STRANDS MANY /LPF (Neg)
[2021-12-27 23:11] LABS: BACTERIA,URINE NONE SEEN /HPF (Neg); SQUAMOUS EPITHELIAL CELL,UR NONE SEEN /LPF (FEW); WBC,URINE 0-4 /HPF (0-4)
[2021-12-27] MEDS ORDERED: ASEN10TA11 SL (23:45)
[2021-12-28] MEDS: quetiapine 100mg tablet PO SCH ×2 (00:41→20:10)
--- NOTE | 2021-12-28 00:41 | NUR ---
Patient's packet was sent to [facility].
[2021-12-28] MEDS: budesonide 0.5mg/2ml UD nebule IH SCH ×2 (09:00→20:27)
[2021-12-28] MEDS: cholecalciferol (vitamin D3) 1,000 unit (25mcg) tablet PO SCH (10:49)
[2021-12-28] MEDS: benztropine 1mg tablet PO SCH (10:49)
[2021-12-28] MEDS: PARoxetine 20mg tablet PO SCH (10:50)
[2021-12-28] MEDS: paliperidone 1.5mg ER tablet PO SCH (10:50)
[2021-12-28] MEDS: LORazepam 1 MG tablet PO PRN (10:54)
[2021-12-28] MEDS: asenapine 5mg TAB.SUBL SL SCH (11:09)
[2021-12-28] MEDS: albuterol 2.5 MG/3 ML nebule NEB SCH ×2 (16:22→20:26)
--- NOTE | 2021-12-28 18:36 | NUR ---
[facility] clincian met with the patient and the plan is for the patient to meet with clinical D&A contracts representative and transfer to a rehab. He is very tired. He stated that "I'm ilir suicidal and homicidal towards my roommate" He stated that he is still feeling paranoid towards his roommate.
--- NOTE | 2021-12-28 20:13 | NUR ---
The patient has been resting on his bed. He was awakened for evening medications and he was med compliant and polite. Requested and received HS snack.
--- NOTE | 2021-12-28 20:32 | NUR ---
Budesonide no available in ER, [place] not given, RN aware
[2021-12-28] MEDS ORDERED: QUEtiapine 25mg tablet PO SCH (21:00)
--- NOTE | 2021-12-28 21:06 | NUR ---
The patient appears to be sleeping and is lightly snoring
--- NOTE | 2021-12-28 22:01 | NUR ---
The patient appears to be sleeping
--- NOTE | 2021-12-28 23:10 | NUR ---
The patient is sleeping on his bed and snoring loudly
--- NOTE | 2021-12-29 00:13 | NUR ---
The patient appears to be sleeping and is snoring
--- NOTE | 2021-12-29 01:34 | NUR ---
The patient appears to be sleeping
[2021-12-29] MEDS: albuterol 2.5 MG/3 ML nebule NEB SCH ×2 (03:00→09:00)
--- NOTE | 2021-12-29 03:05 | NUR ---
The patient appears to be sleeping
--- NOTE | 2021-12-29 04:23 | NUR ---
The patient appears to be sleeping and is snoring
[2021-12-29 05:32] VITALS: BP 114/65
--- NOTE | 2021-12-29 05:46 | NUR ---
The patient appeared to have slept throughout the night and was snoring for most of it
--- NOTE | 2021-12-29 06:30 | NUR ---
Received patient and report from AKIKO Hutton (NOC Shift). Patient appears to be sleeping at this time. Will continue to observe patient at this time. Patient located in BED #21.
--- NOTE | 2021-12-29 08:15 | NUR ---
Met with patient in regards to substance use and to see if patient wanted resources for treatment options. Patient isn't sure if he wants rehab or not. I gave patient [facility] number if he decides to go into treatment. Also gave patient my card to call me if he has any questions.
[2021-12-29] MEDS: paliperidone 1.5mg ER tablet PO SCH (08:25)
[2021-12-29] MEDS: benztropine 1mg tablet PO SCH (08:25)
[2021-12-29] MEDS: PARoxetine 20mg tablet PO SCH (08:26)
[2021-12-29] MEDS: cholecalciferol (vitamin D3) 1,000 unit (25mcg) tablet PO SCH (08:26)
--- NOTE | 2021-12-29 08:30 | NUR ---
Pulled patient's scheduled medications and returned to patient's bedside. Patient sleeping at this time. Woke up and informed the patient that I had his medications here to be taken. Patient immediately sat up alongside his bed, and took his medications without any issues. Patient then stated "I'm anxious, did you include an Ativan in my cup of pills?" Informed the patient I had not gotten him the Ativan when I gave him his cup of routine medications, and I would get it for him. Retrieved Ativan per pts request. Administered Ativan po per pts request. Patient was able to fall right back to sleep at this time. Resting comfortably at this time.
[2021-12-29] MEDS: asenapine 5mg TAB.SUBL SL SCH (08:33)
[2021-12-29] MEDS: LORazepam 1 MG tablet PO PRN (08:57)
[2021-12-29] MEDS: budesonide 0.5mg/2ml UD nebule IH SCH (09:00)
--- NOTE | 2021-12-29 09:21 | NUR ---
PT. IS SLEEPING WITHOUT SOB. BS REPORTED BY RN TO BE CLEAR. SVN HELD BY RN
--- NOTE | 2021-12-29 10:30 | NUR ---
Patient sleeping in bed at this time. Will continue to monitor.
--- NOTE | 2021-12-29 12:28 | NUR ---
Received discharge orders for patient to be discharged today. Discussed today's discharge with the patient. Requested from patient his address, and patient stated "I live really close by." Asked if patient would like a taxi arranged for his ride home from the hospital. Patient stated "No, I prefer to walk home. Patient given bag of clothing and belongings. Patient stated "My cell phone is not in there, [employer] took it. 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 Reviewed patient's discharge paperwork with the patient, and he signed that he received the information. Security arrived to walk patient out to discharge.
== END 2021-12-29 12:50 | disposition home or self-care (01) ==
LOC: ER 17:50
DX: R45.851 Suicidal ideations (principal); Z20.822 Contact with and (suspected) exposure to COVID-19; F20.9 Schizophrenia, unspecified; F15.951 Other stimulant use, unspecified with stimulant-induced psychotic disorder with hallucinations; F31.9 Bipolar disorder, unspecified; I10 Essential (primary) hypertension; F12.10 Cannabis abuse, uncomplicated; Z59.00 Homelessness unspecified; J45.909 Unspecified asthma, uncomplicated; Z91.018 Allergy to other foods; Z79.899 Other long term (current) drug therapy
CPT/HCPCS: 36415; 80053; 80305; 80320; 81001; 85025; 87635; 96361; 96372; 96374; 99285; C9803; J1200; J2060; J7030